=== PATIENT | female | born 1930 | race Asian ===

== ENCOUNTER 2016-07-24 01:09 | Inpatient (IN) | payer OTHER ==
[~2016-07-24] VITALS: Ht 154.9 cm; Wt 66.3 kg
[~2016-07-24 01:09] MED LIST: ACET-2080 PO; HYDR1TAB PO; LEVO88TA7 PO; METF500T4 PO; NAPR375T PO; SIMV40TA5 PO; VALS320T2 PO; [UNRECOGNIZED DRUG - CODE]
[2016-07-24] MEDS ORDERED: TRAM50TA4 PO (01:21)
[2016-07-24] MEDS ORDERED: ONDANSETRON HCL 4 MG/2 ML VIAL IVP ONE (01:30)
[2016-07-24] MEDS ORDERED: SODIUM CHLORIDE 0.9% 1,000 ML IV ONE (01:30)
[2016-07-24 01:35] LABS: BASOPHILS # (AUTO) 0.06 K/uL (0.00-0.20); BASOPHILS % (AUTO) 0.7 % (0.0-2.0); EOSINOPHILS # (AUTO) 0.43 K/uL (0.00-0.70); EOSINOPHILS % (AUTO) 4.91 % (1.0-6.0); LYMPHOCYTES # (AUTO) 3.2 K/uL (1.0-4.8); LYMPHOCYTES % (AUTO) 36.2 % (22.0-44.0); MEAN CORPUSCULAR HEMOGLOBIN 23.7 pg (26.0-34.0); MEAN CORPUSCULAR HGB CONC 30.8 G/dL (31.0-37.0); MEAN CORPUSCULAR VOLUME 77 fL (80-100); MONOCYTES # (AUTO) 0.6 K/uL (0.1-1.0); MONOCYTES % (AUTO) 6.7 % (2.0-9.0); NEUTROPHILS # (AUTO) 4.6 K/uL (1.8-7.7); NEUTROPHILS % (AUTO) 51.6 % (40.0-70.0); PLATELET COUNT (AUTO) 264 K/uL (150-450); RED BLOOD CELL COUNT(AUTO) 5.47 MIL/uL (4.00-5.20); RED CELL DISTRIBUTION WIDTH 18.6 % (11.5-14.5); WHITE BLOOD COUNT (AUTO) 8.8 K/uL (4.5-11.0)
[2016-07-24 01:38] LABS: ANION GAP 11 mmol/L (8-16); CALCIUM, TOTAL 9.1 mg/dL (8.8-10.5); CARBON DIOXIDE 30 mmol/L (22-29); CHLORIDE 102 mmol/L (98-107); CREATININE 0.75 mg/dL (0.60-1.30); GLOMERULAR FILTR. RATE CALC > 60 mL/min (>60); POTASSIUM 3.3 mmol/L (3.5-5.1); SODIUM SERUM 143 mmol/L (136-145); UREA NITROGEN, BLOOD 13 mg/dL (7-18)
[2016-07-24 01:52] LABS: ALANINE AMINOTRANSFERASE 23 U/L (12-78); ALBUMIN 4.2 g/dL (3.4-5.0); ASPARTATE AMINOTRANSFERASE 18 U/L (15-37); BILIRUBIN,TOTAL 0.6 mg/dL (0.1-1.0); THYROID STIMULATING HORMONE 2.94 uIU/mL (0.36-3.74); TOTAL PROTEIN, SERUM 8.8 g/dL (6.4-8.2)
[2016-07-24 02:03] LABS: APPEARANCE,URINE CLEAR (CLEAR); GLUCOSE, URINE (UA) NEGATIVE (NEGATIVE); KETONES,URINE NEGATIVE (NEGATIVE); LEUKOCYTE ESTERASE ,URINE SMALL (NEGATIVE); OCCULT BLOOD,URINE NEGATIVE (NEGATIVE); PH,URINE 7.5 (5.0-8.0); PROTEIN,URINE POS 1+ (NEGATIVE)
[2016-07-24 02:56] LABS: RBC,URINE 0-2 /HPF (0-2); SQUAMOUS EPITHELIAL CELL,UR Few /LPF (None Seen)
[2016-07-24] MEDS ORDERED: MECLIZINE HCL 25 MG TABLET PO ONE (03:30)
[2016-07-24 04:54] LABS: RBC MORPHOLOGY COMMENT ABNORMAL RBC MORPH
[2016-07-24 07:23] LABS: GLUCOSE,POINT OF CARE 165 MG/DL (70-110)
[2016-07-24] MEDS ORDERED: PROMETHAZINE HCL 25 MG/ML VIAL IM PRN ×2 (10:45→13:00)
[2016-07-24] MEDS: MECLIZINE HCL 25 MG TABLET PO SCH (10:50)
[2016-07-24 11:38] LABS: GLUCOSE,POINT OF CARE 130 MG/DL (70-110)
[2016-07-24 12:41] VITALS: BP 149/64
[2016-07-24] MEDS: NAPROXEN 375 MG TABLET PO SCH (13:00)
[2016-07-24] MEDS ORDERED: INSULIN ASPART 100 UNITS/ML SQ PRN (13:00)
[2016-07-24] MEDS ORDERED: MetFORMIN HCL 500 MG TABLET PO SCH (13:00)
[2016-07-24] MEDS ORDERED: 0.9% SODIUM CHLORIDE 10 ML SYRINGE IVP PRN (13:00)
[2016-07-24] MEDS ORDERED: DEXTROSE 50%-WATER 25 GM/50 ML SYRINGE IVP PRN (13:00)
[2016-07-24] MEDS: VALSARTAN 160 MG TABLET PO SCH (13:24)
[2016-07-24 13:32] LABS: ANION GAP 5 mmol/L (8-16); CALCIUM, TOTAL 8.8 mg/dL (8.8-10.5); CARBON DIOXIDE 33 mmol/L (22-29); CHLORIDE 103 mmol/L (98-107); CREATININE 0.77 mg/dL (0.60-1.30); GLOMERULAR FILTR. RATE CALC > 60 mL/min (>60); POTASSIUM 4.3 mmol/L (3.5-5.1); SODIUM SERUM 141 mmol/L (136-145); UREA NITROGEN, BLOOD 10 mg/dL (7-18)
[2016-07-24 15:35] VITALS: BP 143/71
[2016-07-24 15:58] VITALS: BP 140/72
[2016-07-24] MEDS: LEVOTHYROXINE SODIUM 88 MCG TABLET PO SCH (17:45)
[2016-07-24 18:19] LABS: GLUCOSE,POINT OF CARE 99 MG/DL (70-110)
[2016-07-24 20:28] VITALS: BP 149/79
[2016-07-24] MEDS: SIMVASTATIN 40 MG TABLET PO SCH (20:38)
[2016-07-24] MEDS: MetFORMIN HCL 500 MG TABLET PO SCH (20:38)
[2016-07-25] VITALS (7 sets, daily range): BP systolic 142–155; BP diastolic 68–97
[2016-07-25 06:11] LABS: BASOPHILS % (AUTO) 0.6 % (0.0-2.0); HEMOGLOBIN 12.3 g/dL (12.0-16.0); LYMPHOCYTES # (AUTO) 3.2 K/uL (1.0-4.8); MEAN CORPUSCULAR HEMOGLOBIN 23.3 pg (26.0-34.0); MEAN CORPUSCULAR HGB CONC 30.7 G/dL (31.0-37.0); MEAN CORPUSCULAR VOLUME 76 fL (80-100); MONOCYTES # (AUTO) 0.7 K/uL (0.1-1.0); MONOCYTES % (AUTO) 6.5 % (2.0-9.0); NEUTROPHILS # (AUTO) 6.2 K/uL (1.8-7.7); NEUTROPHILS % (AUTO) 57.9 % (40.0-70.0); PLATELET COUNT (AUTO) 258 K/uL (150-450); RED BLOOD CELL COUNT(AUTO) 5.27 MIL/uL (4.00-5.20); RED CELL DISTRIBUTION WIDTH 18.6 % (11.5-14.5); WHITE BLOOD COUNT (AUTO) 10.6 K/uL (4.5-11.0)
[2016-07-25 06:23] LABS: HEMOGLOBIN A1C 6.8 % (4.5-6.2)
[2016-07-25 06:35] LABS: GLUCOSE,POINT OF CARE 88 MG/DL (70-110)
[2016-07-25 06:35] LABS: GLUCOSE COMMENT 1 Received Meds; GLUCOSE,POINT OF CARE 131 MG/DL (70-110)
[2016-07-25 06:41] LABS: CHOL/HDL RATIO 4.1 (3.9-5.7); MAGNESIUM 1.8 mg/dL (1.80-2.40); THYROID STIMULATING HORMONE 1.19 uIU/mL (0.36-3.74)
[2016-07-25] MEDS: VALSARTAN 160 MG TABLET PO SCH (08:28)
[2016-07-25] MEDS: LEVOTHYROXINE SODIUM 88 MCG TABLET PO SCH (08:28)
[2016-07-25] MEDS: MetFORMIN HCL 500 MG TABLET PO SCH ×2 (08:28→17:44)
[2016-07-25] MEDS: MECLIZINE HCL 25 MG TABLET PO SCH (08:28)
[2016-07-25] MEDS: NAPROXEN 375 MG TABLET PO SCH (08:28)
[2016-07-25] MEDS: SIMVASTATIN 40 MG TABLET PO SCH (19:58)
[2016-07-26] VITALS (9 sets, daily range): BP systolic 139–196; BP diastolic 65–105
[2016-07-26 07:07] LABS: GLUCOSE,POINT OF CARE 112 MG/DL (70-110)
[2016-07-26 07:07] LABS: GLUCOSE,POINT OF CARE 101 MG/DL (70-110)
[2016-07-26 07:07] LABS: GLUCOSE,POINT OF CARE 126 MG/DL (70-110)
[2016-07-26] MEDS: VALSARTAN 160 MG TABLET PO SCH (08:03)
[2016-07-26] MEDS: MetFORMIN HCL 500 MG TABLET PO SCH ×2 (08:03→17:55)
[2016-07-26] MEDS: LEVOTHYROXINE SODIUM 88 MCG TABLET PO SCH (08:04)
[2016-07-26] MEDS: NAPROXEN 375 MG TABLET PO SCH (08:04)
[2016-07-26] MEDS: MECLIZINE HCL 25 MG TABLET PO SCH (08:04)
[2016-07-26] MEDS: ACETAMINOPHEN 325 MG TABLET PO PRN (14:19)
[2016-07-26 17:23] LABS: GLUCOSE,POINT OF CARE 101 MG/DL (70-110)
[2016-07-26 17:23] LABS: GLUCOSE,POINT OF CARE 88 MG/DL (70-110)
[2016-07-26] MEDS: AmLODIPine BESYLATE 10 MG TABLET PO SCH (17:55)
[2016-07-26] MEDS ORDERED: HydrALAZINE HCL 20 MG/ML VIAL IVP PRN (18:00)
[2016-07-26 18:12] LABS: GLUCOSE,POINT OF CARE 130 MG/DL (70-110)
[2016-07-26] MEDS: SIMVASTATIN 40 MG TABLET PO SCH (21:00)
[2016-07-27 04:11] VITALS: BP 127/72
[2016-07-27] MEDS: ACETAMINOPHEN 325 MG TABLET PO PRN ×2 (06:02→12:59)
[2016-07-27 07:29] VITALS: BP 129/69
[2016-07-27] MEDS: VALSARTAN 160 MG TABLET PO SCH (08:44)
[2016-07-27] MEDS: NAPROXEN 375 MG TABLET PO SCH (08:44)
[2016-07-27] MEDS: MetFORMIN HCL 500 MG TABLET PO SCH (08:46)
[2016-07-27] MEDS: MECLIZINE HCL 25 MG TABLET PO SCH (08:46)
[2016-07-27] MEDS: AmLODIPine BESYLATE 10 MG TABLET PO SCH (08:46)
[2016-07-27] MEDS: LEVOTHYROXINE SODIUM 88 MCG TABLET PO SCH (08:46)
[2016-07-27 11:31] VITALS: BP 145/82
[2016-07-27] MEDS ORDERED: MECL-111 PO (15:00)
== END 2016-07-27 15:30 | disposition home or self-care (01) | DRG 74 ==
LOC: EMS 01:12 → 6N 11:13 → UNDOADMIN 11:13 → 6N 11:14 → 5S 15:30 → 6N 15:30
PROVIDERS: ADMIT Family Medicine; ATTEND Family Medicine
DX: G90.9 Disorder of the autonomic nervous system, unspecified (principal); E86.0 Dehydration; E11.9 Type 2 diabetes mellitus without complications; E03.9 Hypothyroidism, unspecified; E78.5 Hyperlipidemia, unspecified; R42 Dizziness and giddiness; K21.9 Gastro-esophageal reflux disease without esophagitis; J45.909 Unspecified asthma, uncomplicated; I10 Essential (primary) hypertension; Z79.899 Other long term (current) drug therapy; Z91.041 Radiographic dye allergy status; Z79.4 Long term (current) use of insulin; Z90.89 Acquired absence of other organs
CPT/HCPCS: 70450; 82962; 83036; 83735; 84443; 93005; 93970; 96361; 96372; 96374; 97161; 97165; 97530; 99285; J0360; J2405; J2550; J7030

== ENCOUNTER 2018-05-08 10:56 | Emergency (ER) | payer MEDICARE, OTHER ==
[~2018-05-08] VITALS: Ht 157.5 cm; Wt 61.8 kg
[~2018-05-08 10:56] MED LIST changes: -ACET-2080 PO; -HYDR1TAB PO; +MECL-111 PO; +METF-444 PO; -METF500T4 PO; +TRAM50TA4 PO; -[UNRECOGNIZED DRUG - CODE]
[2018-05-08] MEDS ORDERED: ASPI-1182 PO (11:18)
[2018-05-08 11:24] LABS: GLUCOSE,POINT OF CARE 126 MG/DL (70-110)
[2018-05-08] MEDS ORDERED: ALBUTEROL SULFATE 2.5 MG/0.5 ML NEB SOLUTION NEB ONE (11:45)
[2018-05-08] MEDS ORDERED: IPRATROPIUM BROMIDE 0.5 MG/2.5 ML NEB SOLUTION NEB ONE (11:45)
[2018-05-08 12:15] LABS: BASOPHILS % (AUTO) 1.1 % (0.0-2.0); HEMATOCRIT 38.7 % (36-46); HEMOGLOBIN 12.1 g/dL (12.0-16.0); LYMPHOCYTES % (AUTO) 37.4 % (22.0-44.0); MEAN CORPUSCULAR HEMOGLOBIN 24.7 pg (26.0-34.0); MEAN CORPUSCULAR HGB CONC 31.1 G/dL (31.0-37.0); MEAN CORPUSCULAR VOLUME 79 fL (80-100); MONOCYTES # (AUTO) 0.6 K/uL (0.1-1.0); MONOCYTES % (AUTO) 7.9 % (2.0-9.0); NEUTROPHILS # (AUTO) 3.9 K/uL (1.8-7.7); NEUTROPHILS % (AUTO) 48.6 % (40.0-70.0); PLATELET COUNT (AUTO) 260 K/uL (150-450); RED BLOOD CELL COUNT(AUTO) 4.88 MIL/uL (4.00-5.20); RED CELL DISTRIBUTION WIDTH 16.8 % (11.5-14.5)
[2018-05-08 12:42] LABS: B-TYPE NATRIURETIC PEPTIDE 72 pg/mL (0-100)
[2018-05-08 12:44] LABS: ANION GAP 6 mmol/L (8-16); CALCIUM, TOTAL 9.4 mg/dL (8.8-10.5); CARBON DIOXIDE 31 mmol/L (22-29); CHLORIDE 102 mmol/L (98-107); CREATININE 0.75 mg/dL (0.60-1.30); GLUCOSE,RANDOM 104 mg/dL (70-110); POTASSIUM 3.8 mmol/L (3.5-5.1); SODIUM SERUM 139 mmol/L (136-145); UREA NITROGEN, BLOOD 16 mg/dL (7-18)
[2018-05-08 12:47] LABS: ALANINE AMINOTRANSFERASE 16 U/L (12-78); ALBUMIN 3.7 g/dL (3.4-5.0); ALKALINE PHOSPHATASE 79 U/L (46-116); ASPARTATE AMINOTRANSFERASE 19 U/L (15-37); BILIRUBIN,TOTAL 0.6 mg/dL (0.1-1.0); GLOMERULAR FILTR. RATE CALC > 60 mL/min (>60); THYROID STIMULATING HORMONE 0.48 uIU/mL (0.36-3.74); TOTAL PROTEIN, SERUM 8.6 g/dL (6.4-8.2)
[2018-05-08 13:13] LABS: INFLUENZA TYPE A NEGATIVE FOR TYPE A (NEGATIVE); INFLUENZA TYPE B NEGATIVE FOR TYPE B (NEGATIVE)
[2018-05-08 13:39] LABS: APPEARANCE,URINE CLOUDY (CLEAR); BILIRUBIN,URINE NEGATIVE (NEGATIVE); GLUCOSE, URINE (UA) NEGATIVE (NEGATIVE); KETONES,URINE NEGATIVE (NEGATIVE); LEUKOCYTE ESTERASE ,URINE TRACE (NEGATIVE); NITRATE,URINE NEGATIVE (NEGATIVE); OCCULT BLOOD,URINE TRACE (NEGATIVE); PH,URINE 6.5 (5.0-8.0); PROTEIN,URINE NEGATIVE (NEGATIVE); UROBILINOGEN,URINE 0.2 mg/dL (<=1.0)
[2018-05-08 13:53] LABS: BACTERIA,URINE None Seen /HPF (None Seen); RBC,URINE 0-2 /HPF (0-2); SQUAMOUS EPITHELIAL CELL,UR Moderate /LPF (None Seen); WBC,URINE 0-2 /HPF (0-5); YEAST,URINE Few /HPF (None Seen)
[2018-05-08] MEDS ORDERED: ALBUTEROL SULFATE HFA 90 MCG/PUFF 8 GM INHALER IH ONE (15:00)
[2018-05-08 15:35] VITALS: BP 171/76
== END 2018-05-08 15:50 | disposition home or self-care (01) ==
LOC: EMS 10:56
DX: J45.901 Unspecified asthma with (acute) exacerbation (principal); J06.9 Acute upper respiratory infection, unspecified; E11.9 Type 2 diabetes mellitus without complications; K21.9 Gastro-esophageal reflux disease without esophagitis; E78.00 Pure hypercholesterolemia, unspecified; I10 Essential (primary) hypertension; E03.9 Hypothyroidism, unspecified; Z91.041 Radiographic dye allergy status; Z79.82 Long term (current) use of aspirin; Z79.84 Long term (current) use of oral hypoglycemic drugs
CPT/HCPCS: 51701; 84443; 87040; 87804; 93005; 94640; J3535